=== PATIENT | male | born 1960 | race Caucasian/White ===

== ENCOUNTER → 2020-10-26 | Outpatient (CLI) | payer BC ==
--- NOTE | 2020-10-26 17:01 | CARDNUC ---
[place] [address] CARDIAC NUCLEAR IMAGING REPORT Name: JEM WALL Room: [facility]#: [id number] Admission: 10/26/20 Attend Phys: Sarai Dsouza Discharge: Date of : 60 Date of Service: 10/26/20 1701 Report #: [id number] THIS REPORT FOR: cc: Jem Leal James V. DO Liston,Dylan Gordillo MD [facility] ~ APPROVED REPORT Imaging Protocol: Stress Tc-99m/Rest Tc-99m 1 day Study performed: 10/26/2020 09:27:51 Indication: Chest pain, Palpitations Patient Location: Out-Patient Stress Tech: Mary Dueñas Stress Nurse: Tania Fontenot RN Ht: 6 ft 1 in Wt: 211 lbs BSA: 2.20 m2 BMI: 27.83 Medical History Medical History: CAD s/p VT, CAD s/p stent Medications: asa-325, hctz, cozaar, rosuvaststin Allergies: No known drug allergies Cardiac Risk Factors: Age, FHX of CAD, HTN, Hyperlipidemia, Tobacco History (Former) Previous Cardiac Procedures: PCI, Myocardial infarction Exercise History: Physically active Resting Data Rest SPECT myocardial perfusion imaging was performed in supine position 30 minutes following the intravenous injection of 9.7 mCi of Tc-99m Sestamibi. Time of rest injection: 0800 The images were gated to evaluate regional wall motion and calculate left ventricular ejection fraction. Administration Route: IV Administration Site: Right AC Exercise Stress At peak stress, the patient was injected intravenously with 31.2mCi of Tc-99m Sestamibi. Time of stress injection: 0945 Administration Route: IV Administration Site: [place] [address] CARDIAC NUCLEAR IMAGING REPORT Name: JEM WALL Room: [facility]#: [id number] Admission: 10/26/20 Attend Phys: Sarai Dsouza Discharge: Date of : 60 Date of Service: 10/26/20 1701 Report #: [id number] Heart Rate at time of stress injection: 146 bpm. Patient continued to exercise for 1 minute(s). Gated Stress SPECT was performed 30 minutes after stress injection. The images were gated to evaluate regional wall motion and calculate left ventricular ejection fraction. Prone imaging was performed. Stress Test Details Stress Test: Exercise stress testing was performed using a Gómez protocol. HR Max Heart Rate (APMHR): 160 bpm Resting HR: 49 bpm Target HR (85% APMHR): 136 bpm Max HR Achieved: 154 bpm % of APMHR: 96 Recovery HR: 81 bpm BP Resting BP: 148/83 mmHg Max BP: 187/89 mmHg Recovery BP: 143/91 mmHg ECG Resting ECG: Sinus Rhythm Stress ECG: Sinus Tachycardia ST Change: None Arrhythmia: None Recovery ECG: Sinus Rhythm Recovery ST Change: None Recovery Arrhythmia: None Clinical Reason for Termination: Dyspnea, Fatigue Exercise duration: 9 min 49 sec Exercise capacity: 11.48 METs Overall Exercise Capacity for Age: Superior Functional Aerobic Impairment 95% The patient tolerated standard Gómez protocol exercise without significant cardiac symptoms. Stress ECG Conclusion The baseline twelve-lead EKG shows sinus rhythm without significant ST segment or T wave abnormality. EKGs obtained during and post exercise show sinus rhythm and sinus tachycardia with no significant ST segment change or T wave abnormality when compared to baseline. There were no [place] [address] CARDIAC NUCLEAR IMAGING REPORT Name: JEM WALL Room: [facility]#: [id number] Admission: 10/26/20 Attend Phys: Sarai Dsouza Discharge: Date of : 60 Date of Service: 10/26/20 1701 Report #: [id number] Study Quality Study: Good Artifact: No artifact Study Data At rest, the left ventricular ejection fraction was 70%.. Post stress, the left ventricular ejection was 63%.. TID = 1.03. Perfusion Perfusion images obtained at rest and post exercise stress show no defect to suggest infarct or ischemia. Wall Motion Normal left ventricular wall motion. Nuclear Conclusion ECG Findings: negative for ischemia Clinical Findings: negative for ischemia Nuclear Findings: negative for ischemia Exercise Capacity: normal Left Ventricular Function: normal Risk Study: low Perfusion images show no defect to suggest infarct or ischemia. Left ventricular systolic function appears normal on gated studies. This is a low risk study. <Conclusion> The baseline twelve-lead EKG shows sinus rhythm without significant ST segment or T wave abnormality. EKGs obtained during and post exercise show sinus rhythm and sinus tachycardia with no significant ST segment change or T wave abnormality when compared to baseline. There were no stress-induced arrhythmias. <ELECTRONICALLY SIGNED> By: Dylan Huggins MD, FACC 10/26/201700 00 00 Dylan Huggins MD, FACC /INF
== END ==
LOC: M.NUC 07:33
PROVIDERS: ATTEND Internal Medicine
DX: R07.89 Other chest pain (principal); I25.2 Old myocardial infarction